=== PATIENT | male | born 1980 | race Two or more races ===

== ENCOUNTER 2017-12-07 15:13 | Inpatient (IN) | payer MEDICAID ==
[~2017-12-07] VITALS: Ht 180.3 cm; Wt 84.0 kg
[~2017-12-07 15:13] MED LIST: HYDR12.56; LISI2.5T47
[2017-12-07] MEDS ORDERED: ONDANSETRON HCL 4 MG/2 ML VIAL IV ONE ×2 (15:30→16:30)
[2017-12-07] MEDS ORDERED: HYDROmorphone HCL 2 MG/ML VL IV ONE ×2 (15:30→16:30)
[2017-12-07 16:13] LABS: Basophils # (auto) 0 uL; Basophils % (auto) 0.4 % (0.0-2.0); Eosinophils # (auto) 0 uL; Eosinophils % (auto) 0.4 % (0.0-7.0); Hematocrit 43.6 % (41.0-53.0); Hemoglobin 14.5 g/dL (13.5-17.5); Lymphocytes # (auto) 1.4 uL; Lymphocytes % (auto) 13.5 % (10.0-50.0); Mean Corpuscular Hemoglobin 28.4 pg (28.0-32.0); Mean Corpuscular Hgb Conc. 33.3 g/dL (32.0-36.0); Mean Corpuscular Volume 85.3 fL (80.0-100.0); Monocytes # (auto) 0.6 uL; Monocytes % (auto) 6.3 % (0.0-12.0); Neutrophils # (auto) 8.2 uL; Neutrophils % (auto) 79.4 % (37.0-80.0); Nucleated Red Blood Cells % 0.1 %; Platelet Count (auto) 394 10^3/uL (140-450); Red Blood Cells 5.12 10^6/uL (4.5-5.90); Red Cell Distribution Width 14.1 % (11.8-14.3); White Blood Cell 10.3 10^3/uL (4.4-10.8)
[2017-12-07] MEDS ORDERED: ACETAMINOPHEN 500 MG TAB PO ONE ×2 (16:14→16:15)
[2017-12-07 16:24] LABS: Chloride 106 mmol/L (98-107); Potassium 4.2 mmol/L (3.5-5.1); Sodium 138 mmol/L (136-145)
[2017-12-07 17:09] LABS: Alanine Aminotransferase 33 U/L (16-61); Albumin 4.2 g/dL (3.4-5.0); Anion Gap 13 (5-15); Aspartate Aminotransferase 28 U/L (15-37); BUN/Creatinine Ratio 6.5; Blood Urea Nitrogen 7 mg/dL (7-18); Calcium 8.6 mg/dL (8.5-10.1); Carbon Dioxide 19 mmol/L (21-32); GFR African American 99 mL/min; GFR Non-African American 82 mL/min; Glucose 102 mg/dL (74-106)
[2017-12-07 17:12] LABS: Alkaline Phosphatase 57 U/L (45-117); Bilirubin, Total 0.3 mg/dL (0.2-1.0); Total Protein 7.7 g/dL (6.4-8.2)
[2017-12-07] MEDS ORDERED: PROMETHAZINE HCL 25 MG/ML 1ML IV PRN (17:15)
[2017-12-07] MEDS ORDERED: ACETAMINOPHEN 500 MG TAB PO PRN (17:15)
[2017-12-07] MEDS ORDERED: TEMAZEPAM 15 MG CAP PO PRN (17:15)
[2017-12-07] MEDS ORDERED: LACTULOSE 20Gm/30ML SOLN PO PRN (17:15)
[2017-12-07] MEDS ORDERED: LORazepam 2MG/ML-1ML VIAL IV PRN (17:15)
[2017-12-07] MEDS ORDERED: NITROGLYCERIN 0.4 MG SL TAB SL PRN (17:15)
[2017-12-07] MEDS ORDERED: MORPHINE SULFATE 4 MG/ML SYR/VIAL IV PRN ×2 (17:15)
[2017-12-07 17:34] LABS: Blood Alcohol < 3.0 mg/dL (0-5)
[2017-12-07] MEDS: SODIUM CHLORIDE 0.9% 1,000 ML IV SCH (17:45)
[2017-12-07] MEDS ORDERED: clonazePAM 0.5 MG TAB PO ONE (20:45)
[2017-12-07] MEDS: HYDROcodone-ACET 5/325MG TAB PO PRN (21:55)
[2017-12-07 22:00] VITALS: BP 163/94
[2017-12-07 22:15] VITALS: BP 163/94
[2017-12-07] MEDS ORDERED: cloNIDine HCL 0.1 MG TAB PO PRN (22:15)
[2017-12-07] MEDS ORDERED: LISINOPRIL 5 MG TAB PO ONE (22:15)
[2017-12-07] MEDS ORDERED: HCTZ 25 MG TAB PO ONE (22:16)
[2017-12-07] MEDS ORDERED: MORPHINE SULFATE 8mg/ml INJ SDV IV PRN (22:30)
[2017-12-07 22:50] VITALS: BP 163/94
[2017-12-07] MEDS: HYDROmorphone HCL 2 MG/ML VL IV PRN (22:54)
[2017-12-08] MEDS: SODIUM CHLORIDE 0.9% 1,000 ML IV SCH (03:16)
[2017-12-08] MEDS: HYDROmorphone HCL 2 MG/ML VL IV PRN ×2 (03:31→08:08)
[2017-12-08 04:52] VITALS: BP 148/103
[2017-12-08] MEDS: HYDROcodone-ACET 5/325MG TAB PO PRN (04:57)
[2017-12-08] MEDS: LORazepam 0.5 MG TAB PO PRN ×2 (04:57→10:58)
[2017-12-08 05:51] LABS: Cholesterol 114 mg/dL (< 200); HDL Cholesterol 43 mg/dL (40-59); LDL Cholesterol 69 mg/dL (< 100); Triglycerides 114 mg/dL (< 150)
[2017-12-08] MEDS ORDERED: FAM20T PO (07:12)
[2017-12-08 09:00] VITALS: BP 148/95
[2017-12-08] MEDS ORDERED: LISINOPRIL 5 MG TAB PO SCH (10:00)
[2017-12-08] MEDS ORDERED: HCTZ 25 MG TAB PO SCH (10:00)
[2017-12-08] MEDS ORDERED: HYDROmorphone HCL 2 MG/ML VL IV PRN (10:45)
[2017-12-08] MEDS ORDERED: LORazepam 2MG/ML-1ML VIAL IV PRN (10:45)
[2017-12-08] MEDS ORDERED: THIAMINE 100mg/ml INJ (200mg/2ml VIAL) IV SCH (10:50)
[2017-12-08 13:28] VITALS: BP 156/96
== END 2017-12-08 13:30 | disposition home or self-care (01) | DRG 816 ==
LOC: EDBD 15:13 → ER 15:17 → TELE 15:18 → TELE-WESTW 22:15
PROVIDERS: ADMIT Internal Medicine; ATTEND Internal Medicine
PROC: 2W3BXYZ Immobilization of Left Upper Arm using Other Device (ICD-10-PCS; principal; 2017-12-07)
DX: T40.5X1A Poisoning by cocaine, accidental (unintentional), initial encounter (principal); R56.9 Unspecified convulsions; F14.10 Cocaine abuse, uncomplicated; S42.202A Unspecified fracture of upper end of left humerus, initial encounter for closed fracture; F41.9 Anxiety disorder, unspecified; W18.39XA Other fall on same level, initial encounter; F12.10 Cannabis abuse, uncomplicated; F15.10 Other stimulant abuse, uncomplicated; Y93.89 Activity, other specified; Z82.49 Family history of ischemic heart disease and other diseases of the circulatory system; Z83.3 Family history of diabetes mellitus; Y92.89 Other specified places as the place of occurrence of the external cause
CPT/HCPCS: 36415; 70450; 73030; 80053; 80061; 80320; 85025; 85652; 93005; 96374; 96375; 96376; J2405

== ENCOUNTER 2021-02-18 08:12 | Emergency (ER) | payer MEDICAID ==
[~2021-02-18] VITALS: Ht 177.8 cm; Wt 99.8 kg
[~2021-02-18 08:12] MED LIST changes: +FAMO20TA10 PO
[2021-02-18 08:33] LABS: Basophils # (auto) 0.1 10 ^3/uL (0-0.2); Basophils % (auto) 0.6 % (0.0-2.0); Eosinophils # (auto) 0.1 10 ^3/uL (0-0.8); Eosinophils % (auto) 1.1 % (0.0-7.0); Hematocrit 45.6 % (41.0-53.0); Hemoglobin 15.5 g/dL (13.5-17.5); Lymphocytes # (auto) 1.5 10 ^3/uL (0.4-5.4); Lymphocytes % (auto) 14.5 % (10.0-50.0); Mean Corpuscular Hemoglobin 28.6 pg (28.0-32.0); Mean Corpuscular Hgb Conc. 34.1 g/dL (32.0-36.0); Mean Corpuscular Volume 83.8 fL (80.0-100.0); Monocytes # (auto) 0.8 10 ^3/uL (0-1.3); Neutrophils % (auto) 75.8 % (37.0-80.0); Nucleated Red Blood Cells % 0.1 %; Red Blood Cells 5.44 10^6/uL (4.5-5.90); Red Cell Distribution Width 14.5 % (11.8-14.3); White Blood Cell 10.6 10^3/uL (4.4-10.8)
[2021-02-18 08:58] LABS: Albumin 4.2 g/dL (3.4-5.0); Anion Gap 11 (5-15); Blood Urea Nitrogen 14 mg/dL (7-18); Calcium 8.5 mg/dL (8.5-10.1); Carbon Dioxide 20 mmol/L (21-32); Chloride 105 mmol/L (98-107); Glucose 83 mg/dL (74-106); Magnesium 3.1 mg/dL (1.6-2.6); Potassium 3.7 mmol/L (3.5-5.1); Sodium 136 mmol/L (136-145)
[2021-02-18 09:03] LABS: Alanine Aminotransferase 78 U/L (16-61); Alkaline Phosphatase 66 U/L (45-117); Aspartate Aminotransferase 78 U/L (15-37); BUN/Creatinine Ratio 10.8; Bilirubin, Total 0.4 mg/dL (0.2-1.0); GFR African American 79 mL/min; GFR Non-African American 65 mL/min
[2021-02-18 10:46] VITALS: BP 134/104
[2021-02-18 11:29] LABS: Urine Bacteria NONE SEEN /hpf (None Seen); Urine Blood 1+ /uL (Negative); Urine Specific Gravity 1.013 (1.001-1.035); Urine WBC 1 /hpf (0 - 3)
[2021-02-18 11:46] LABS: Amphetamine Screen, Urine POSITIVE (NEGATIVE); Barbiturate Scree,Urine NEGATIVE (NEGATIVE); Benzodiazephine Screen, Urine NEGATIVE (NEGATIVE); Cannabinoid Screen, Urine POSITIVE (NEGATIVE); Cocaine Screen, Urine NEGATIVE (NEGATIVE); Opiate Scree,Urine NEGATIVE (NEGATIVE); Phencyclidine Screen, Urine NEGATIVE (NEGATIVE)
== END 2021-02-18 10:50 | disposition left against medical advice (07) ==
LOC: ER 08:12 → EDBD 08:12 → ER 10:50
DX: G93.41 Metabolic encephalopathy (principal); R56.9 Unspecified convulsions; I10 Essential (primary) hypertension; Z79.899 Other long term (current) drug therapy
CPT/HCPCS: 36415; 70450; 71045; 80053; 80307; 81001; 83735; 84484; 85025; 93005

== ENCOUNTER 2023-02-15 21:07 | Emergency (ER) | payer MEDICAID ==
[~2023-02-15] VITALS: Ht 177.8 cm; Wt 112.4 kg
[~2023-02-15 21:07] MED LIST changes: -HYDR12.56; +HYDR12.59
[2023-02-15 21:51] LABS: Urine WBC None Seen /hpf (0 - 3)
[2023-02-15 21:55] LABS: Urine Bacteria NONE SEEN /hpf (None Seen); Urine Blood Negative /uL (Negative); Urine Specific Gravity 1.012 (1.001-1.035)
[2023-02-15 22:08] LABS: Basophils # (auto) 0.1 10 ^3/uL (0-0.2); Basophils % (auto) 0.6 % (0.0-2.0); Eosinophils # (auto) 0.2 10 ^3/uL (0-0.8); Eosinophils % (auto) 2.2 % (0.0-7.0); Hematocrit 43.2 % (41.0-53.0); Hemoglobin 14.3 g/dL (13.5-17.5); Lymphocytes # (auto) 2.7 10 ^3/uL (0.4-5.4); Lymphocytes % (auto) 30.5 % (10.0-50.0); Mean Corpuscular Hemoglobin 27.8 pg (28.0-32.0); Mean Corpuscular Hgb Conc. 33.2 g/dL (32.0-36.0); Mean Corpuscular Volume 83.7 fL (80.0-100.0); Monocytes # (auto) 0.8 10 ^3/uL (0-1.3); Monocytes % (auto) 9.5 % (0.0-12.0); Neutrophils # (auto) 5.1 10 ^3/uL (1.6-8.6); Neutrophils % (auto) 57.2 % (37.0-80.0); Nucleated Red Blood Cells % 0.1 %; Red Blood Cells 5.16 10^6/uL (4.5-5.90); Red Cell Distribution Width 14.8 % (11.8-14.3); White Blood Cell 8.9 10^3/uL (4.4-10.8)
[2023-02-15 22:34] LABS: Albumin 4.1 g/dL (3.4-5.0); Calcium 8.6 mg/dL (8.5-10.1); Magnesium 2.4 mg/dL (1.6-2.6); Potassium 3.6 mmol/L (3.5-5.1)
[2023-02-15 22:37] LABS: BUN/Creatinine Ratio 12.6 (10.0-20.0); Bilirubin, Total 0.2 mg/dL (0.2-1.0); Total Protein 7.4 g/dL (6.4-8.2)
[2023-02-16 03:43] VITALS: BP 136/93; PULSE 94; RESP 16; TEMP 97.6; O2SAT 97
[2023-02-16] MEDS ORDERED: [UNRECOGNIZED DRUG - CODE] PO (03:49)
[2023-02-16] MEDS ORDERED: CIPR-173 PO (03:49)
[2023-02-16] MEDS ORDERED: AML5T PO (03:49)
[2023-02-16] MEDS ORDERED: MAALOX PLUS or MAALOX 30 ML PO ONE (04:00)
[2023-02-16] MEDS ORDERED: LIDOCAINE VISCOUS 2% 15ML UD PO ONE (04:00)
[2023-02-16] MEDS ORDERED: DONNATAL 5ml ORAL Elix (BELLADONNA ALK-PHENOBARB) PO ONE (04:00)
== END 2023-02-16 04:56 | disposition short-term general hospital (02) ==
LOC: ER 21:07
DX: I10 Essential (primary) hypertension (principal); K29.70 Gastritis, unspecified, without bleeding; F12.10 Cannabis abuse, uncomplicated; F15.10 Other stimulant abuse, uncomplicated; F14.10 Cocaine abuse, uncomplicated; R06.02 Shortness of breath
CPT/HCPCS: 36415; 70450; 71045; 71250; 74176; 80053; 81001; 83735; 83880; 84484; 85025; 93005